=== PATIENT | male | born 1950 | race Caucasian/White ===

== ENCOUNTER 2023-07-10 09:34 | Outpatient (AMB) | payer MEDICARE, OTHER, SELFPAY ==
--- NOTE | 2023-07-10 09:36 | MHC.OFFVIS ---
Intake Intake Visit Reasons: New Pt - right hip pain Intake Note: Morgan is a 73 year old male who presents today as a new patient with complaints of right hip pain. Patient reports that he has had pain for some time now. He reports that his pain was felt in the groin, lateral aspect of the hip and buttock. He has pain that is aggravating daily activities . Allergies atorvastatin [From LIPITOR] Adverse Reaction (Mild, Unverified 07/10/23 09:40) COUGH HPI New Pt - right hip pain HPI Details Pj is a 73 year old man who presents with complaints of right hip pain. He complains of pain with weight-bearing activities, and says his pain is most bothersome when trying to sleep. His pain is felt primarily in the groin. He says his pain has been present for a little over a month , and he was favoring his right side, walking with a limp. He says at night he cannot get comfortable and is often sleeping in his recliner. He says he has been attending PT, with little relief. He and his try to stay active by playing Golf, but this has been difficult for him with his pain. He has a hx of nephrectomy and has to be careful taking NSAIDs. He says he was seen in the hospital recently for double hernia treatment. He thought the hernia was causing his groin pain but his pain continued following surgery. He has a hx of a left TKA performed by Dr. Cotter in the past. His says they are cplanning to move to [place] later this month [facility] Surgical History (Updated 07/10/23 @ 09:42 by Cori Workman CMA) History of ankle surgery History of left knee replacement Hx of cataract surgery S/P hernia surgery Social History (Updated 07/10/23 @ 09:42 by Cori Workman CMA) Patient Tobacco Use Status: Current everyday Tobacco user Cigarettes Per Day: 7 Current occupational status: retired Review of Systems Const All systems reviewed & are unremarkable except as noted in HPI and below Physical Exam Const General: no acute distress, alert and awake Orientation/consciousness: patient oriented x3 HEENT Head: Yes normocephalic and Yes atraumatic Eyes EOM: EOMs intact bilaterally Resp Effort & Inspection: normal respiratory effort and able to speak in complete sentences Cardio Jugular venous distension: no JVD Skin General skin exam: turgor normal Rashes: no rashes Neuro General: patient oriented x3 Extrem Other: Right Hip: Trendelenburg gait + stinchfield + impingement Psych Appearance: grossly normal Affect: normal affect Attitude: cooperative Results Reviewed Results Reviewed: I personally reviewed relevant radiographs. Severe right hip osteoarthritis Assessment & Plan Assessment & Plan (1) Osteoarthritis of right hip: Code(s): M16.11 - Unilateral primary osteoarthritis, right hip Plan: This is a 73 year old man with severe right hip OA. He has pain with weight-bearing activities, and difficulty sleeping at night. His pain is localized to the groin, and he is currently attending PT. I discussed his diagnosis and treatment options. I think he will need a PINA in the future and would benefit from this, but as he has only been experiencing pain for ~1 month I think this can be managed conservatively. He declined any treatment today, I recommend he focus on quad, core, and gluteal strengthening exercises and avoid extreme ROM activities. I discussed the safe use of NSAIDs considering he has a hx of nephrectomy, and recommend 600mg BID. If he would like a hip injection prior to his move on 07/26/23 he will contact the clinic. Plan Scribed for Erasmo Jenkins MD by Chetan Sanchez, medical logistics specialist, on 07/10/23 at 10:00 AM, EST. Orders: Orders XR pelvis 1-2V 07/10/23 M25.559 - Pain in unspecified hip Referrals Pain Management Referral M16.11 - Unilateral primary osteoarthritis, right hip Coding Level of Care Code New Pt Level 4 (67536) Diagnoses Osteoarthritis of right hip M16.11
== END 2023-07-10 10:11 | disposition home or self-care (01) ==
PROVIDERS: PCP Internal Medicine; Visit Provider Orthopaedic Surgery
DX: M16.11 Unilateral primary osteoarthritis, right hip (principal)
CPT/HCPCS: 99203

== ENCOUNTER 2023-07-10 09:34 | Outpatient (REF) | payer MEDICARE, SELFPAY | END 2023-07-10 09:35 | disposition home or self-care (01) | LOC: HO.HOSX 09:34 | PROVIDERS: PCP Internal Medicine; Visit Provider Orthopaedic Surgery | DX: Z13.89 Encounter for screening for other disorder (principal) ==